=== PATIENT | female | born 1950 | race Caucasian/White ===

== ENCOUNTER 2018-04-26 18:46 | Inpatient (IN) | payer MEDICAID, OTHER ==
[2018-04-26] MEDS: IBUPROFEN 800 MG TAB PO (19:15)
[2018-04-26] MEDS ORDERED: ONDANSETRON 4 MG INJ IV (20:00)
[2018-04-26] MEDS ORDERED: ACETAMINOPHEN 325 MG TAB PO (20:00)
[2018-04-26 20:05] LABS: WHITE BLOOD COUNT 8.9 10^3/ul (4.8-10.8)
[2018-04-26 20:05] LABS: ABNORMAL IP MESSAGE 1; HEMATOCRIT 34.7 % (37.0-47.0); HEMOGLOBIN 11.3 g/dl (12.0-16.0); MEAN CORPUSCULAR HEMOGLOBIN 28.6 pg (29.0-33.0); MEAN CORPUSCULAR HGB CONC 32.6 g/dl (32.0-37.0); MEAN CORPUSCULAR VOLUME 87.8 fl (82.0-101.0); MEAN PLATELET VOLUME 10.6 fl (7.4-10.4); PLATELET COUNT 225 10^3/UL (140-415); RED BLOOD COUNT 3.95 10^6/ul (4.20-5.40); RED CELL DISTRIBUTION WIDTH 12.3 % (11.5-14.5)
[2018-04-26 20:11] LABS: ADD MAN DIFF? YES; POSITIVE DIFF @See below
[2018-04-26 20:16] LABS: INR 0.91; PROTIME 12.4 Sec (11.9-14.9)
[2018-04-26 20:17] LABS: PARTIAL THROMBOPLASTIN TIME 29.8 Sec (23.0-35.0)
[2018-04-26] MEDS: morphine 4 MG/ML VIAL IV (20:20)
[2018-04-26] MEDS: ONDANSETRON 4 MG INJ IV (20:20)
[2018-04-26 20:33] LABS: ANISOCYTOSIS 1+ (0-0); BASOPHILS % (M) 1 % (0-2); EOSINOPHILS % (M) 27 % (0-7); GIANT THROMBO% (M) 2 % (0-0); LYMPHOCYTES % (M) 23 % (15-51); MICROCYTOSIS 1+ (0-0); MONOCYTE #M 0.2 10^3/ul (0.3-0.9); MONOCYTES % (M) 3 % (0-11); PLATELET ESTIMATE NORMAL; REACTIVE LYMPHOCYTES #M 0.2 10^3/ul (0.0-0.0); REACTIVE LYMPHOCYTES% (M) 3 % (0-0); SEGMENTED NEUTROPHILS (M) % 43 % (39-77); SMUDGE%M 3 % (0-0)
[2018-04-26 20:42] LABS: ANION GAP 9 (5-13); BLOOD UREA NITROGEN 14 mg/dl (7-20); CALCIUM 10.5 mg/dl (8.4-10.2); CARBON DIOXIDE 28 mmol/L (21-31); CHLORIDE 99 mmol/L (97-110); CREATININE 0.54 mg/dl (0.44-1.00); Estimated GFR > 60 mL/min (>60); GLUCOSE 149 mg/dl (70-220); POTASSIUM 4.5 mmol/L (3.5-5.1); SODIUM 136 mmol/L (135-144)
[2018-04-26 20:54] LABS: TROPONIN-I < 0.012 ng/ml (0.000-0.120)
[2018-04-27] MEDS ORDERED: ALBUTEROL/IPRATROPIUM (NEB) 3 ML AMP HHN
[2018-04-27] MEDS ORDERED: morphine 2 MG INJ IV
[2018-04-27] MEDS ORDERED: NACL 0.9% 3 ML SYG IV
[2018-04-27] MEDS: METOPROLOL 25 MG TAB PO ×3 (01:00→20:50)
[2018-04-27] MEDS: morphine 4 MG/ML VIAL IV (01:10)
[2018-04-27] MEDS: HYDROmorphONE 1 MG/ML SYG IV (03:05)
[2018-04-27 05:42] LABS: ADD MAN DIFF? NO
[2018-04-27 05:45] LABS: WHITE BLOOD COUNT 10.1 10^3/ul (4.8-10.8)
[2018-04-27 05:45] LABS: BASOPHIL # 0.1 10^3/ul (0.0-0.1); BASOPHILS % 0.6 % (0.0-2.0); EOSINOPHILS # 1.1 10^3/ul (0.0-0.5); EOSINOPHILS % 11.1 % (0.0-7.0); HEMATOCRIT 31.8 % (37.0-47.0); HEMOGLOBIN 10.7 g/dl (12.0-16.0); LYMPHOCYTES # 1.6 10^3/ul (0.8-2.9); LYMPHOCYTES % 15.4 % (15.0-51.0); MEAN CORPUSCULAR HGB CONC 33.6 g/dl (32.0-37.0); MEAN CORPUSCULAR VOLUME 86.2 fl (82.0-101.0); MEAN PLATELET VOLUME 10.7 fl (7.4-10.4); MONOCYTE # 0.8 10^3/ul (0.3-0.9); MONOCYTES % 7.9 % (0.0-11.0); NEUTROPHIL # 6.6 10^3/ul (1.6-7.5); NEUTROPHILS % 64.7 % (39.0-77.0); PLATELET COUNT 214 10^3/UL (140-415); RED BLOOD COUNT 3.69 10^6/ul (4.20-5.40); RED CELL DISTRIBUTION WIDTH 12.5 % (11.5-14.5)
[2018-04-27 06:06] LABS: ALANINE AMINOTRANSFERASE 37 IU/L (13-69); ALBUMIN 4.3 g/dl (3.3-4.9); ALBUMIN/GLOBULIN RATIO 1.43; ALKALINE PHOSPHATASE 56 IU/L (42-121); ANION GAP 9 (5-13); ASPARTATE AMINO TRANSFERASE 28 IU/L (15-46); BILIRUBIN,INDIRECT 0.6 mg/dl (0-1.1); BILIRUBIN,TOTAL 0.6 mg/dl (0.2-1.3); BLOOD UREA NITROGEN 16 mg/dl (7-20); CALCIUM 9.6 mg/dl (8.4-10.2); CARBON DIOXIDE 28 mmol/L (21-31); CHLORIDE 96 mmol/L (97-110); CHOL/HDL RATIO 2.5 RATIO; CHOLESTEROL 122 mg/dl (100-200); CREATININE 0.54 mg/dl (0.44-1.00); Estimated GFR > 60 mL/min (>60); GLUCOSE 193 mg/dl (70-220); HDL CHOLESTEROL 47 mg/dl (33-92); LDL CHOLESTEROL,CALCULATED 46 mg/dl; MAGNESIUM 1.6 mg/dl (1.7-2.5); PHOSPHORUS 4.9 mg/dl (2.5-4.9); POTASSIUM 4.3 mmol/L (3.5-5.1); SODIUM 133 mmol/L (135-144); TOTAL PROTEIN 7.3 g/dl (6.1-8.1); TRIGLYCERIDES 145 mg/dl (0-149)
[2018-04-27 07:00] LABS: HEMOGLOBIN A1C 7.2 % (0-5.9)
[2018-04-27] MEDS: LISINOPRIL 10 MG TAB PO (08:45)
[2018-04-27] MEDS: HEPARIN 5,000 UNIT/1 ML VIAL SC (08:45)
[2018-04-27] MEDS: HYDROCODONE/APAP (5/325) TAB PO ×2 (08:46→16:30)
[2018-04-27] MEDS: DEXTROSE 5%-0.45% NACL 1,000 ML IV ×2 (09:30→19:30)
[2018-04-27] MEDS ORDERED: GLUCOSE GEL 15 GRAM TUBE BUCCAL (09:30)
[2018-04-27] MEDS ORDERED: DEXTROSE 50% 50 ML SYRINGE IV ×2 (09:30)
[2018-04-27] MEDS ORDERED: GLUCAGON 1 MG INJ IM (09:30)
[2018-04-27] MEDS ORDERED: GLUCOSE GEL 15 GRAM TUBE PO ×2 (09:30)
[2018-04-27] MEDS ORDERED: hydrALAzine 20 MG INJ IV (09:30)
[2018-04-27 10:47] LABS: IRON 37 ug/dl (35-150)
[2018-04-27 10:57] LABS: % IRON SATURATION 11 % SAT (22-52); TOTAL IRON BINDING CAPACITY 345 ug/dl (241-421)
[2018-04-27 11:49] LABS: FERRITIN 17.8 ng/ml (11.1-264.0)
[2018-04-27] MEDS: INSULIN ASPART [NOVOLOG] 3 ML PEN SC ×3 (12:44→20:59)
[2018-04-27] MEDS: ATORVASTATIN 40 MG TAB PO (20:50)
[2018-04-28] MEDS: ACCU-CHEK XX (01:26)
[2018-04-28] MEDS: morphine 4 MG/ML VIAL IV (01:43)
[2018-04-28] MEDS: DEXTROSE 5%-0.45% NACL 1,000 ML IV ×2 (02:41→15:30)
[2018-04-28 05:11] LABS: ADD MAN DIFF? NO; BASOPHIL # 0.1 10^3/ul (0.0-0.1); BASOPHILS % 0.6 % (0.0-2.0); EOSINOPHILS # 1.2 10^3/ul (0.0-0.5); EOSINOPHILS % 13.2 % (0.0-7.0); HEMATOCRIT 32.4 % (37.0-47.0); HEMOGLOBIN 10.7 g/dl (12.0-16.0); LYMPHOCYTES # 2.1 10^3/ul (0.8-2.9); LYMPHOCYTES % 23.6 % (15.0-51.0); MEAN CORPUSCULAR HEMOGLOBIN 28.7 pg (29.0-33.0); MEAN CORPUSCULAR VOLUME 86.9 fl (82.0-101.0); MONOCYTES % 10.6 % (0.0-11.0); NEUTROPHIL # 4.6 10^3/ul (1.6-7.5); NEUTROPHILS % 51.7 % (39.0-77.0); PLATELET COUNT 211 10^3/UL (140-415); RED BLOOD COUNT 3.73 10^6/ul (4.20-5.40); RED CELL DISTRIBUTION WIDTH 12.4 % (11.5-14.5)
[2018-04-28 05:57] LABS: ANION GAP 9 (5-13); BLOOD UREA NITROGEN 16 mg/dl (7-20); CALCIUM 9.1 mg/dl (8.4-10.2); CARBON DIOXIDE 27 mmol/L (21-31); CHLORIDE 96 mmol/L (97-110); CREATININE 0.55 mg/dl (0.44-1.00); Estimated GFR > 60 mL/min (>60); GLUCOSE 181 mg/dl (70-220); MAGNESIUM 1.8 mg/dl (1.7-2.5); PHOSPHORUS 4.2 mg/dl (2.5-4.9); POTASSIUM 4.4 mmol/L (3.5-5.1); SODIUM 132 mmol/L (135-144)
[2018-04-28] MEDS: METOPROLOL 25 MG TAB PO ×2 (08:55→21:34)
[2018-04-28] MEDS: LISINOPRIL 10 MG TAB PO (08:55)
[2018-04-28] MEDS: INSULIN ASPART [NOVOLOG] 3 ML PEN SC ×4 (08:58→21:38)
[2018-04-28 09:33] LABS: AADO2 Arterial 17.6 mmHg (7.0-24.0); Allen Test ACCEPTAB; Arterial Base Excess -0.5 mmol/L (-3.0-3); Arterial Blood Gas Oxygen Sat 96.7 mmHG (95.0-98.0); Arterial COHb 0.2 % (0.0-3.0); Arterial Fraction of Oxyhgb 96.4 % (93.0-99.0); Arterial HCO3 23.4 mmol/L (22.0-26.0); Arterial MetHb 0.1 % (0.0-1.5); Arterial pCO2 36.1 mmhg (35-45); MODE ROOM AIR; Site Right Radial
[2018-04-28] MEDS: HYDROCODONE/APAP (5/325) TAB PO ×2 (15:11→22:33)
[2018-04-28] MEDS: morphine 2 MG INJ IV (18:02)
[2018-04-28] MEDS: ATORVASTATIN 40 MG TAB PO (21:33)
[2018-04-28] MEDS: HEPARIN 5,000 UNIT/1 ML VIAL SC (21:39)
[2018-04-29] MEDS: DEXTROSE 5%-0.45% NACL 1,000 ML IV ×3 (01:30→21:30)
[2018-04-29] MEDS: ACCU-CHEK XX (01:36)
[2018-04-29] MEDS: HYDROCODONE/APAP (5/325) TAB PO (04:29)
[2018-04-29 05:22] LABS: ADD MAN DIFF? NO
[2018-04-29 05:42] LABS: WHITE BLOOD COUNT 10.3 10^3/ul (4.8-10.8)
[2018-04-29 05:42] LABS: BASOPHIL # 0.1 10^3/ul (0.0-0.1); BASOPHILS % 0.7 % (0.0-2.0); EOSINOPHILS # 1.2 10^3/ul (0.0-0.5); EOSINOPHILS % 11.8 % (0.0-7.0); HEMATOCRIT 34.6 % (37.0-47.0); HEMOGLOBIN 11.4 g/dl (12.0-16.0); LYMPHOCYTES # 1.9 10^3/ul (0.8-2.9); MEAN CORPUSCULAR HEMOGLOBIN 28.5 pg (29.0-33.0); MEAN CORPUSCULAR HGB CONC 32.9 g/dl (32.0-37.0); MEAN CORPUSCULAR VOLUME 86.5 fl (82.0-101.0); MEAN PLATELET VOLUME 11.1 fl (7.4-10.4); MONOCYTES % 9.8 % (0.0-11.0); NEUTROPHIL # 6.1 10^3/ul (1.6-7.5); NEUTROPHILS % 59.5 % (39.0-77.0); PLATELET COUNT 228 10^3/UL (140-415); RED CELL DISTRIBUTION WIDTH 12.6 % (11.5-14.5)
[2018-04-29 06:07] LABS: ANION GAP 10 (5-13); BLOOD UREA NITROGEN 13 mg/dl (7-20); CALCIUM 9.1 mg/dl (8.4-10.2); CARBON DIOXIDE 25 mmol/L (21-31); CHLORIDE 99 mmol/L (97-110); CREATININE 0.51 mg/dl (0.44-1.00); Estimated GFR > 60 mL/min (>60); GLUCOSE 212 mg/dl (70-220); MAGNESIUM 1.9 mg/dl (1.7-2.5); PHOSPHORUS 3.7 mg/dl (2.5-4.9); POTASSIUM 4.2 mmol/L (3.5-5.1); SODIUM 134 mmol/L (135-144)
[2018-04-29] MEDS: METOPROLOL 25 MG TAB PO ×2 (09:34→20:17)
[2018-04-29] MEDS: HEPARIN 5,000 UNIT/1 ML VIAL SC (09:35)
[2018-04-29] MEDS: LISINOPRIL 10 MG TAB PO (09:35)
[2018-04-29] MEDS: INSULIN ASPART [NOVOLOG] 3 ML PEN SC ×4 (09:36→20:20)
[2018-04-29] MEDS: traMADol 50 MG TAB PO (15:27)
[2018-04-29] MEDS: ATORVASTATIN 40 MG TAB PO (20:17)
[2018-04-30] MEDS: ACCU-CHEK XX (02:00)
[2018-04-30] MEDS: ALPRAZOLAM 1 MG TAB PO ×2 (02:18→11:34)
[2018-04-30 05:18] LABS: ADD MAN DIFF? NO
[2018-04-30 05:27] LABS: BASOPHIL # 0.1 10^3/ul (0.0-0.1); BASOPHILS % 0.4 % (0.0-2.0); EOSINOPHILS # 0.7 10^3/ul (0.0-0.5); EOSINOPHILS % 6.3 % (0.0-7.0); HEMATOCRIT 34.7 % (37.0-47.0); HEMOGLOBIN 11.7 g/dl (12.0-16.0); MEAN CORPUSCULAR HEMOGLOBIN 28.4 pg (29.0-33.0); MEAN CORPUSCULAR HGB CONC 33.7 g/dl (32.0-37.0); MEAN CORPUSCULAR VOLUME 84.2 fl (82.0-101.0); MEAN PLATELET VOLUME 10.6 fl (7.4-10.4); MONOCYTE # 1.3 10^3/ul (0.3-0.9); MONOCYTES % 11.4 % (0.0-11.0); NEUTROPHIL # 7.5 10^3/ul (1.6-7.5); NEUTROPHILS % 64.6 % (39.0-77.0); PLATELET COUNT 255 10^3/UL (140-415); RED BLOOD COUNT 4.12 10^6/ul (4.20-5.40); RED CELL DISTRIBUTION WIDTH 12.2 % (11.5-14.5)
[2018-04-30 05:27] LABS: WHITE BLOOD COUNT 11.6 10^3/ul (4.8-10.8)
[2018-04-30 05:50] LABS: ANION GAP 15 (5-13); BLOOD UREA NITROGEN 14 mg/dl (7-20); CALCIUM 8.9 mg/dl (8.4-10.2); CARBON DIOXIDE 24 mmol/L (21-31); CHLORIDE 95 mmol/L (97-110); CREATININE 0.41 mg/dl (0.44-1.00); Estimated GFR > 60 mL/min (>60); GLUCOSE 206 mg/dl (70-220); PHOSPHORUS 3.1 mg/dl (2.5-4.9); POTASSIUM 4.3 mmol/L (3.5-5.1); SODIUM 134 mmol/L (135-144)
[2018-04-30] MEDS: DEXTROSE 5%-0.45% NACL 1,000 ML IV (07:30)
[2018-04-30] MEDS: LISINOPRIL 10 MG TAB PO (10:52)
[2018-04-30] MEDS: INSULIN ASPART [NOVOLOG] 3 ML PEN SC ×4 (10:52→20:34)
[2018-04-30] MEDS: METOPROLOL 25 MG TAB PO ×2 (10:53→21:00)
[2018-04-30] MEDS: traMADol 50 MG TAB PO (10:55)
[2018-04-30] MEDS: HEPARIN 5,000 UNIT/1 ML VIAL SC ×2 (12:51→20:33)
[2018-04-30] MEDS: INSULIN GLARGINE [LANTus] (100 UNITS/ML) SYG SC (20:36)
[2018-04-30] MEDS: ATORVASTATIN 40 MG TAB PO (21:00)
[2018-04-30] MEDS: QUETIAPINE 25 MG TAB PO (21:00)
[2018-05-01] MEDS: ACETAMINOPHEN 325 MG TAB PO (00:19)
[2018-05-01] MEDS: DEXTROSE 5%-0.45% NACL 1,000 ML IV ×2 (00:26→16:31)
[2018-05-01] MEDS: ACCU-CHEK XX (01:15)
[2018-05-01 05:23] LABS: ADD MAN DIFF? NO
[2018-05-01 05:30] LABS: BASOPHIL # 0.1 10^3/ul (0.0-0.1); BASOPHILS % 0.7 % (0.0-2.0); EOSINOPHILS # 1.2 10^3/ul (0.0-0.5); EOSINOPHILS % 13.1 % (0.0-7.0); HEMOGLOBIN 11.1 g/dl (12.0-16.0); LYMPHOCYTES # 2.4 10^3/ul (0.8-2.9); LYMPHOCYTES % 24.8 % (15.0-51.0); MEAN CORPUSCULAR HEMOGLOBIN 28.8 pg (29.0-33.0); MEAN CORPUSCULAR HGB CONC 33.6 g/dl (32.0-37.0); MEAN CORPUSCULAR VOLUME 85.5 fl (82.0-101.0); MEAN PLATELET VOLUME 10.2 fl (7.4-10.4); MONOCYTES % 10.5 % (0.0-11.0); NEUTROPHIL # 4.8 10^3/ul (1.6-7.5); NEUTROPHILS % 50.6 % (39.0-77.0); PLATELET COUNT 261 10^3/UL (140-415); RED BLOOD COUNT 3.86 10^6/ul (4.20-5.40); RED CELL DISTRIBUTION WIDTH 12.6 % (11.5-14.5)
[2018-05-01 05:30] LABS: WHITE BLOOD COUNT 9.5 10^3/ul (4.8-10.8)
[2018-05-01 05:52] LABS: ANION GAP 15 (5-13); BLOOD UREA NITROGEN 18 mg/dl (7-20); CALCIUM 8.7 mg/dl (8.4-10.2); CARBON DIOXIDE 23 mmol/L (21-31); CHLORIDE 95 mmol/L (97-110); CREATININE 0.54 mg/dl (0.44-1.00); GLUCOSE 200 mg/dl (70-220); MAGNESIUM 2.3 mg/dl (1.7-2.5); PHOSPHORUS 3.8 mg/dl (2.5-4.9); POTASSIUM 4.3 mmol/L (3.5-5.1); SODIUM 133 mmol/L (135-144)
[2018-05-01] MEDS: HEPARIN 5,000 UNIT/1 ML VIAL SC ×2 (08:22→23:46)
[2018-05-01] MEDS: LISINOPRIL 10 MG TAB PO (09:00)
[2018-05-01] MEDS: INSULIN ASPART [NOVOLOG] 3 ML PEN SC ×4 (09:12→23:44)
[2018-05-01] MEDS: METOPROLOL 25 MG TAB PO ×2 (09:32→23:45)
[2018-05-01] MEDS: ACETAMINOPHEN 1000MG/100ML IV 100 ML IVPB ×2 (15:38→23:58)
[2018-05-01] MEDS ORDERED: FENTAnyl 50 MCG/ML VIAL ×2 (19:19→22:05)
[2018-05-01] MEDS: POLYMYXIN/BACITRACIN 1L IRRIG (20:32)
[2018-05-01] MEDS ORDERED: SUCCINYLCHOLINE CHLORIDE 100 MG/5 ML SYG IV (21:32)
[2018-05-01] MEDS ORDERED: ROCURONIUM 50 MG INJ (21:33)
[2018-05-01] MEDS ORDERED: PROPOFOL 20 ML (21:33)
[2018-05-01] MEDS ORDERED: CEFAZOLIN 1 GM INJ (21:33)
[2018-05-01] MEDS ORDERED: SUGAMMADEX SODIUM 200 MG/2 ML VIAL IV (21:33)
[2018-05-01] MEDS ORDERED: LIDOCAINE 100 MG SYRINGE (21:33)
[2018-05-01] MEDS ORDERED: ONDANSETRON 4 MG INJ (21:59)
[2018-05-01] MEDS ORDERED: HYDROCODONE/APAP (5/325) TAB PO (22:00)
[2018-05-01] MEDS ORDERED: morphine 4 MG/ML VIAL IV (22:00)
[2018-05-01] MEDS ORDERED: NALOXONE (0.4 MG/ML) INJ IV (22:00)
[2018-05-01] MEDS ORDERED: NACL 0.9% 3 ML SYG IV (22:00)
[2018-05-01] MEDS: FENTAnyl 50 MCG/ML VIAL IV ×2 (22:21→22:28)
[2018-05-01] MEDS: ONDANSETRON 4 MG INJ IV (22:22)
[2018-05-01] MEDS ORDERED: METOCLOPRAMIDE 10 MG INJ IV (22:30)
[2018-05-01] MEDS ORDERED: FENTAnyl 50 MCG/ML VIAL IV (22:30)
[2018-05-01] MEDS ORDERED: HYDROmorphONE 1 MG/5 ML IV SYRINGE IV (22:30)
[2018-05-01] MEDS ORDERED: LABETALOL HCL 20MG INJ IV (22:30)
[2018-05-01] MEDS ORDERED: MEPERIDINE 25 MG INJ IV (22:30)
[2018-05-01] MEDS ORDERED: DIPHENHYDRAMINE 50 MG INJ IV (22:30)
[2018-05-01] MEDS: HYDROmorphONE 1 MG/5 ML IV SYRINGE IV (23:13)
[2018-05-01] MEDS: INSULIN GLARGINE [LANTus] (100 UNITS/ML) SYG SC (23:43)
[2018-05-01] MEDS: QUETIAPINE 25 MG TAB PO (23:46)
[2018-05-01] MEDS: ATORVASTATIN 40 MG TAB PO (23:46)
[2018-05-01] MEDS: SOD CHLORIDE 0.9% 1,000 ML IV (23:47)
[2018-05-02] MEDS: ACCU-CHEK XX (02:51)
[2018-05-02] MEDS: CEFAZOLIN 2 GM/50 ML (PMX) 50 ML IVPB ×3 (02:55→21:49)
[2018-05-02] MEDS: traMADol 50 MG TAB PO (05:27)
[2018-05-02 05:28] LABS: ADD MAN DIFF? NO
[2018-05-02 05:41] LABS: WHITE BLOOD COUNT 8.4 10^3/ul (4.8-10.8)
[2018-05-02 05:41] LABS: BASOPHILS % 0.5 % (0.0-2.0); EOSINOPHILS # 0.1 10^3/ul (0.0-0.5); EOSINOPHILS % 1.4 % (0.0-7.0); HEMATOCRIT 31.3 % (37.0-47.0); HEMOGLOBIN 10.3 g/dl (12.0-16.0); LYMPHOCYTES # 0.8 10^3/ul (0.8-2.9); LYMPHOCYTES % 9.7 % (15.0-51.0); MEAN CORPUSCULAR HEMOGLOBIN 28.8 pg (29.0-33.0); MEAN CORPUSCULAR HGB CONC 32.9 g/dl (32.0-37.0); MEAN CORPUSCULAR VOLUME 87.4 fl (82.0-101.0); MEAN PLATELET VOLUME 10.2 fl (7.4-10.4); MONOCYTE # 0.9 10^3/ul (0.3-0.9); MONOCYTES % 11.1 % (0.0-11.0); NEUTROPHIL # 6.5 10^3/ul (1.6-7.5); NEUTROPHILS % 77.1 % (39.0-77.0); PLATELET COUNT 279 10^3/UL (140-415); RED BLOOD COUNT 3.58 10^6/ul (4.20-5.40); RED CELL DISTRIBUTION WIDTH 12.5 % (11.5-14.5)
[2018-05-02 06:24] LABS: ALBUMIN 3.7 g/dl (3.3-4.9); ANION GAP 11 (5-13); BLOOD UREA NITROGEN 15 mg/dl (7-20); CARBON DIOXIDE 20 mmol/L (21-31); CHLORIDE 105 mmol/L (97-110); CREATININE 0.41 mg/dl (0.44-1.00); GLUCOSE 203 mg/dl (70-220); MAGNESIUM 2.2 mg/dl (1.7-2.5); PHOSPHORUS 3.7 mg/dl (2.5-4.9); POTASSIUM 4.6 mmol/L (3.5-5.1); SODIUM 136 mmol/L (135-144)
[2018-05-02] MEDS: LISINOPRIL 10 MG TAB PO (09:00)
[2018-05-02] MEDS: METOPROLOL 25 MG TAB PO ×2 (09:03→20:55)
[2018-05-02] MEDS: ACETAMINOPHEN 325 MG TAB PO ×2 (09:04→17:41)
[2018-05-02] MEDS: INSULIN ASPART [NOVOLOG] 3 ML PEN SC ×4 (09:07→20:50)
[2018-05-02] MEDS: ENOXAPARIN 40 MG/0.4 ML SYG SC (09:11)
[2018-05-02] MEDS: KETOROLAC 15 MG INJ IV ×2 (11:33→17:42)
[2018-05-02] MEDS: POLYETHYLENE GLYCOL 17 GM PACKET PO (14:45)
[2018-05-02] MEDS: INSULIN GLARGINE [LANTus] (100 UNITS/ML) SYG SC (20:49)
[2018-05-02] MEDS: ATORVASTATIN 40 MG TAB PO (20:50)
[2018-05-02] MEDS: QUETIAPINE 25 MG TAB PO (20:54)
[2018-05-03] MEDS: ACCU-CHEK XX (02:28)
[2018-05-03 05:46] LABS: ADD MAN DIFF? NO
[2018-05-03 05:54] LABS: WHITE BLOOD COUNT 9.6 10^3/ul (4.8-10.8)
[2018-05-03 05:54] LABS: BASOPHIL # 0.1 10^3/ul (0.0-0.1); BASOPHILS % 0.6 % (0.0-2.0); EOSINOPHILS # 0.5 10^3/ul (0.0-0.5); EOSINOPHILS % 4.9 % (0.0-7.0); HEMATOCRIT 28.6 % (37.0-47.0); HEMOGLOBIN 9.7 g/dl (12.0-16.0); LYMPHOCYTES # 1.4 10^3/ul (0.8-2.9); LYMPHOCYTES % 14.3 % (15.0-51.0); MEAN CORPUSCULAR HGB CONC 33.9 g/dl (32.0-37.0); MEAN CORPUSCULAR VOLUME 85.6 fl (82.0-101.0); MEAN PLATELET VOLUME 10.4 fl (7.4-10.4); MONOCYTE # 1.1 10^3/ul (0.3-0.9); MONOCYTES % 11.3 % (0.0-11.0); NEUTROPHIL # 6.6 10^3/ul (1.6-7.5); NEUTROPHILS % 68.4 % (39.0-77.0); PLATELET COUNT 284 10^3/UL (140-415); RED BLOOD COUNT 3.34 10^6/ul (4.20-5.40); RED CELL DISTRIBUTION WIDTH 12.3 % (11.5-14.5)
[2018-05-03 06:12] LABS: ANION GAP 8 (5-13); BLOOD UREA NITROGEN 10 mg/dl (7-20); CALCIUM 8.2 mg/dl (8.4-10.2); CARBON DIOXIDE 23 mmol/L (21-31); CHLORIDE 103 mmol/L (97-110); CREATININE 0.43 mg/dl (0.44-1.00); Estimated GFR > 60 mL/min (>60); GLUCOSE 183 mg/dl (70-220); POTASSIUM 4.1 mmol/L (3.5-5.1); SODIUM 134 mmol/L (135-144)
[2018-05-03] MEDS: ACETAMINOPHEN 325 MG TAB PO ×2 (08:39→19:44)
[2018-05-03] MEDS: POLYETHYLENE GLYCOL 17 GM PACKET PO (08:40)
[2018-05-03] MEDS: LISINOPRIL 10 MG TAB PO (08:40)
[2018-05-03] MEDS: METOPROLOL 25 MG TAB PO ×2 (08:40→21:09)
[2018-05-03] MEDS: INSULIN ASPART [NOVOLOG] 3 ML PEN SC ×4 (08:42→21:22)
[2018-05-03] MEDS: ENOXAPARIN 40 MG/0.4 ML SYG SC (08:43)
[2018-05-03] MEDS: BISACODYL (EC) 5 MG TAB PO (15:02)
[2018-05-03] MEDS: ATORVASTATIN 40 MG TAB PO (21:09)
[2018-05-03] MEDS: QUETIAPINE 25 MG TAB PO (21:10)
[2018-05-03] MEDS: INSULIN GLARGINE [LANTus] (100 UNITS/ML) SYG SC (21:21)
[2018-05-04] MEDS: ACETAMINOPHEN 325 MG TAB PO ×3 (01:28→16:28)
[2018-05-04] MEDS: ACCU-CHEK XX (01:34)
[2018-05-04] MEDS: INSULIN ASPART [NOVOLOG] 3 ML PEN SC ×4 (08:33→21:00)
[2018-05-04] MEDS: ENOXAPARIN 40 MG/0.4 ML SYG SC (08:34)
[2018-05-04] MEDS: POLYETHYLENE GLYCOL 17 GM PACKET PO (08:37)
[2018-05-04] MEDS: LISINOPRIL 10 MG TAB PO (08:37)
[2018-05-04] MEDS: METOPROLOL 25 MG TAB PO ×2 (08:38→21:20)
[2018-05-04] MEDS ORDERED: POLYETHYLENE GLYCOL 17 GM PACKET NGT (17:00)
[2018-05-04] MEDS: SOD FERRIC GLUC COMPLX 125 MG in SOD CHLORIDE 0.9% 100 ML IVPB (20:29)
[2018-05-04] MEDS: INSULIN GLARGINE [LANTus] (100 UNITS/ML) SYG SC (21:17)
[2018-05-04] MEDS: QUETIAPINE 25 MG TAB PO (21:20)
[2018-05-04] MEDS: ATORVASTATIN 40 MG TAB PO (21:22)
[2018-05-05] MEDS: ACCU-CHEK XX (01:07)
[2018-05-05] MEDS: ACETAMINOPHEN 325 MG TAB PO ×3 (01:07→15:04)
[2018-05-05] MEDS: INSULIN ASPART [NOVOLOG] 3 ML PEN SC ×2 (08:33→12:49)
[2018-05-05] MEDS: ENOXAPARIN 40 MG/0.4 ML SYG SC (08:34)
[2018-05-05] MEDS: METOPROLOL 25 MG TAB PO (08:37)
[2018-05-05] MEDS: LISINOPRIL 10 MG TAB PO (08:37)
[2018-05-05] MEDS: POLYETHYLENE GLYCOL 17 GM PACKET PO (08:39)
[2018-05-05] MEDS: SOD FERRIC GLUC COMPLX 125 MG in SOD CHLORIDE 0.9% 100 ML IVPB (12:55)
== END 2018-05-05 15:05 | disposition home or self-care (01) | DRG 493 ==
LOC: E/R 18:46 → MS1 19:49
PROC: 0QSG04Z Reposition Right Tibia with Internal Fixation Device, Open Approach (ICD-10-PCS; principal; 2018-05-01 19:16)
DX: S82.141A Displaced bicondylar fracture of right tibia, initial encounter for closed fracture (principal); S92.342A Displaced fracture of fourth metatarsal bone, left foot, initial encounter for closed fracture; R44.3 Hallucinations, unspecified; R41.0 Disorientation, unspecified; T40.695A Adverse effect of other narcotics, initial encounter; I10 Essential (primary) hypertension; E11.9 Type 2 diabetes mellitus without complications; E78.5 Hyperlipidemia, unspecified; D64.9 Anemia, unspecified; V03.10XA Pedestrian on foot injured in collision with car, pick-up truck or van in traffic accident, initial encounter; K59.00 Constipation, unspecified; Z85.3 Personal history of malignant neoplasm of breast
CPT/HCPCS: 36600; 70450; 71045; 73560; 73562; 73590; 73630-LT; 73700; 80048; 80053; 80061; 80069; 82728; 82803; 82962; 83036; 83540; 83735; 84100; 84484; 85025; 85610; 85730; 86850; 86900; 86901; 86920; 93005; 93306; 97110; 97116; 97163; 97164; 97530; 99285-25